=== PATIENT | male | born 1955 | race Hispanic/Latino ===

== ENCOUNTER 2017-11-19 08:14 | Outpatient (CLI) | payer BC ==
--- NOTE | 2017-11-20 10:17 | Magnetic Resonance Report ---
MR LOWER EXTREMITY JOINT LEFT WITHOUT CONTRAST HISTORY: Left knee pain. TECHNIQUE: Multisequence, multiplanar MRI without contrast. COMPARISON: None at this facility. FINDINGS: A small joint effusion is identified which extends to the suprapatellar bursa. No popliteal cyst. The body and posterior horn of the medial meniscus are slightly abnormal. The inner margin of the medial meniscus appears truncated in these areas consistent with a parrot beak tear. The lateral meniscus is normal. The ACL, PCL, MCL, LCL complex and extensor complexes are intact. No ligamentous injury is appreciated. Normal popliteus. There is a focal defect in the retropatellar cartilage consistent with a fissure. This is near the apex of the medial and lateral patellar facets. This is best demonstrated on axial proton density fat sat image 26. This appears to be near complete thickness of the cartilage but no underlying bone marrow edema or abnormal signal is identified. There is mild diffuse cartilage thinning in the medial and lateral compartments as well. The bone marrow signal is within normal limits. No evidence for fracture, bone marrow edema or bone lesion. 5 mm degenerative subchondral cyst is noted in the posterior lateral femoral condyle. IMPRESSION: There appear to be 2 parrot-beak tears in the body and posterior horn of the medial meniscus. Less likely these could represent surgical changes. Please correlate with the patient's clinical history. Retropatellar cartilage fissure. Small joint effusion.
== END 2017-11-19 08:15 | disposition home or self-care (01) ==
LOC: MRI 08:14
PROVIDERS: ATTEND Orthopaedic Surgery
DX: S83.242A Other tear of medial meniscus, current injury, left knee, initial encounter (principal); C44.300 Unspecified malignant neoplasm of skin of unspecified part of face; X58.XXXA Exposure to other specified factors, initial encounter; Y93.89 Activity, other specified; Y92.89 Other specified places as the place of occurrence of the external cause; Y99.8 Other external cause status
CPT/HCPCS: 73721

== ENCOUNTER 2017-12-04 11:28 | Outpatient (CLI) | payer BC ==
[2017-12-04 12:07] LABS: Basophils % (Auto) 0.7 % (0.0-1.8); Eosinophils # (Auto) 0.1 K/mm3 (0.0-0.4); Eosinophils % (Auto) 1.5 % (0.0-4.3); Hematocrit 42.7 % (35.5-45.6); Hemoglobin 15.1 gm/dl (11.8-15.2); Lymphocytes # (Auto) 1.8 K/mm3 (1.2-5.4); Lymphocytes % (Auto) 29.1 % (13.4-35.0); Mean Corpuscular HGB Conc 35 % (32-34); Mean Corpuscular Hemoglobin 31 pg (28-32); Mean Corpuscular Volume 88 fl (84-94); Monocytes # (Auto) 0.9 K/mm3 (0.0-0.8); Monocytes % (Auto) 14.1 % (0.0-7.3); Platelet Count 196 K/mm3 (140-440); Red Blood Count 4.87 M/mm3 (3.65-5.03); Red Cell Distribution Width 12.3 % (13.2-15.2)
[2017-12-04 12:26] LABS: BUN/Creatinine Ratio 21; Blood Urea Nitrogen 17 mg/dL (9-20)
[2017-12-04 12:27] LABS: Alanine Aminotransferase 33 units/L (7-56); Albumin 4.3 g/dL (3.9-5); Hemolysis Index 11
== END 2017-12-04 11:29 | disposition home or self-care (01) ==
LOC: CARD 11:28
PROVIDERS: ATTEND Orthopaedic Surgery
DX: E55.9 Vitamin D deficiency, unspecified (principal)
CPT/HCPCS: 36415; 80053; 82306; 85025; 93005; 93010

== ENCOUNTER 2017-12-18 08:24 | Day surgery (SDC) | payer BC ==
[2017-12-18] MEDS ORDERED: DIPRIVAN 10 MG/ML IV ONE (09:54)
[2017-12-18] MEDS ORDERED: XYLOCAINE MPF 2% ONE (09:54)
--- NOTE | 2017-12-18 10:00 | Anesthesia Consultation ---
Anesthesia Consult and Med Hx Date of service: 12/18/17 - Airway Anesthetic Teeth Evaluation: Good ROM Head & Neck: Adequate (use caution with history of neck surgery) Mental/Hyoid Distance: Adequate Mallampati Class: Class II Intubation Access Assessment: Probably Good - Pulmonary Exam CTA: Yes - Cardiac Exam Cardiac Exam: RRR - Pre-Operative Health Status ASA Pre-Surgery Classification: ASA3 Proposed Anesthetic Plan: General - Pulmonary Hx Smoking: Yes (STOPPED SNUFF 20YRS AGO) Hx Sleep Apnea: No (TL PRE SCREEN HIGH RISK) - Cardiovascular System Hx Hypertension: No - Gastrointestinal Hx Gastroesophageal Reflux Disease: No - Other Systems Hx Substance Use: No Hx Cancer: Yes (SKIN CA ON EARS REMOVED)
--- NOTE | 2017-12-18 10:12 | Anesthesia Day of Surgery ---
Anesthesia Day of Surgery - Day of Surgery Patient Examined: Yes Patient H&P Reviewed: Yes Patient is NPO: Yes
[2017-12-18] MEDS ORDERED: PERCOCET 5/325 PO PRN (10:30)
[2017-12-18] MEDS ORDERED: ZOFRAN IV PRN (10:30)
[2017-12-18] MEDS ORDERED: MORPHINE IV PRN (10:30)
[2017-12-18] MEDS ORDERED: MARCAINE-EPI 0.5%-1:200,000 INFILTRATI ONE (10:51)
[2017-12-18] MEDS ORDERED: DEPO-MEDROL ONE (10:52)
[2017-12-18] MEDS ORDERED: ANCEF/STERILE WATER 2 GM/20 ML IV NR (10:55)
[2017-12-18] MEDS ORDERED: NACL 0.9% 1000 ML 1,000 ML IV SCH (11:00)
[2017-12-18] MEDS ORDERED: PEPCID IV NR (11:00)
[2017-12-18] MEDS ORDERED: SUBLIMAZE ONE (11:48)
[2017-12-18] MEDS ORDERED: MARCAINE-EPI 0.25%-1:200,000 IJ ONE (12:08)
[2017-12-18] MEDS ORDERED: NACL 0.9% 1000 ML 1,000 ML ONE (12:27)
[2017-12-18] MEDS ORDERED: ZOFRAN ONE (12:28)
[2017-12-18] MEDS ORDERED: DECADRON ONE (12:28)
--- NOTE | 2017-12-18 14:05 | Operative Report ---
PREOPERATIVE DIAGNOSES: Left knee with degenerative joint disease, meniscal tear. POSTOPERATIVE DIAGNOSES: 1. Left knee with complex tear posterior horn body, medial meniscus. 2. Central fraying, lateral meniscus. 3. Synovitis, tricompartmental. 4. Grade 3 chondromalacia medial femoral condyle. 5. Grade 3 chondromalacia trochlear groove. 6. Grade 3 chondromalacia patella. PROCEDURE PERFORMED: 1. Left knee arthroscopy, partial medial and lateral meniscectomy. 2. Extensive synovectomy. 3. Chondroplasty, medial femoral condyle. 4. Chondroplasty, trochlear groove. 5. Chondroplasty, patella. SURGEON: Jose Luis Izaguirre MD JANITOR CARETAKER: Ander Romero CSA. ANESTHESIA: General. ESTIMATED BLOOD LOSS: Minimal. COMPLICATIONS: None. DESCRIPTION OF PROCEDURE: The patient underwent successful induction of anesthesia. The lower extremity was exsanguinated and placed in a leg darnell. Antibiotics were preadministered. Arthroscopy was carried out standard medial and lateral portals. Systematic exam was carried out and demonstrated the findings as noted. Patellofemoral compartment demonstrated chondromalacia was noted gently debrided with surface in a full radius resector with an excellent stable rim. Synovitis noted tricompartmentally which is quite extensive and appropriately debrided. Lateral compartment demonstrated well preserved articular surfaces. Central fraying of the meniscus gently debrided allowing preservation of peripheral 90% of meniscus. Otherwise, relatively well preserved joint. Notch demonstrated normal ACL and PCL. Medial compartment is primary source of pathology. It was noted to have grade 3 chondromalacia diffusely of the medial femoral condyle with general chondroplasty affected again with a Jose Luis ____ noncontact condyles were removed. The meniscus demonstrated an extensive tear complex with horizontal, vertical and radial cleavage components. To be the combination of bites full resector and a surface, next a stable rim was achieved. The horizontal cleavage did extend to the periphery, but was stable with no fish mouthing noted. This allowed preservation of the peripheral 40% of the meniscus, the peripheral 60% of the posterior aspect of the body and the majority of the anterior horn and anterior interbody. Thorough examination of the joint was carried out, both fluoroscopy and intraoperative photos were obtained for documentation. Joints were copiously irrigated and ____. Ports were closed with nylon sutures. Steri-Strips applied. He was taken to the recovery room in satisfactory condition. JOB# [id number] STEPHENP/NTS
[2017-12-18 15:29] VITALS: BP 148/83
== END 2017-12-18 14:11 | disposition home or self-care (01) ==
LOC: OR 08:24
PROVIDERS: ATTEND Orthopaedic Surgery
DX: S83.232A Complex tear of medial meniscus, current injury, left knee, initial encounter (principal); M17.12 Unilateral primary osteoarthritis, left knee; M65.9 Synovitis and tenosynovitis, unspecified; M22.42 Chondromalacia patellae, left knee; M94.262 Chondromalacia, left knee; X58.XXXA Exposure to other specified factors, initial encounter; Y93.89 Activity, other specified; Y92.89 Other specified places as the place of occurrence of the external cause; Y99.8 Other external cause status; Z85.828 Personal history of other malignant neoplasm of skin; Z87.891 Personal history of nicotine dependence; Z88.0 Allergy status to penicillin
CPT/HCPCS: 29876; 29881; J0690; J1100; J2405; J2704; J3010; J7030; J1030

== ENCOUNTER 2017-12-20 17:17 | Emergency (ER) | payer BC | END 2017-12-20 18:17 | LOC: ED 17:17 | DX: M25.562 Pain in left knee (principal); Z53.21 Procedure and treatment not carried out due to patient leaving prior to being seen by health care provider ==

== ENCOUNTER 2018-02-28 12:03 | Emergency (ER) | payer BC ==
[2018-02-28 12:08] VITALS: BP 160/82
--- NOTE | 2018-02-28 12:37 | Emergency Department Report ---
ED Rash HPI - HPI Chief Complaint: Skin Rash Stated Complaint: RASH Time Seen by Provider: 02/28/18 12:30 Duration: 3 Days Location: Other (patient has a vesicular erythematous rash at the left T10 distribution) Rash Symptoms: Yes Itching Severity: mild ED Review of Systems ROS: Stated complaint: RASH Other details as noted in HPI Comment: All other systems reviewed and negative ED Past Medical Hx - Past Medical History Hx Hypertension: No Hx HIV: No - Social History Smoking Status: Never Smoker Substance Use Type: None - Medications Home Medications: Home Medications Medication Instructions Recorded Confirmed Last Taken Type Acyclovir [Zovirax Cap] 200 mg PO 5XD 7 Days cap 02/28/18 Unknown Rx HYDROcodone/APAP 5-325 [[place] 1 each PO Q6HR PRN #12 tablet 02/28/18 Unknown Rx 5/325] Rash Exam - Exam General: Vital signs noted. No distress. Alert and acting appropriately. HEENT: No Periorbital Edema, No Conjuctival Injection, No Chemosis, No Perioral Edema, No Tongue Edema, No Uvular Edema, No Compromised Airway, No Drooling Lungs: Yes Good Air Exchange (Normal Breath Sounds), No Wheezes, No Ronchi, No Stridor, No Cough, No Labored Respirations, No Retractions, No Use of Accessory Muscles, No Other Abnormal Lung Sounds Heart: Yes Regular, No Murmur Skin: Yes Erythema (patient has an erythematous vesicular rash at the left T10 dermatome) Other: Positive: Abdomen Normal, Neurologic Normal, Musculoskeletal Normal ED Course Vital Signs 02/28/18 12:06 Temperature 98.3 F Pulse Rate 74 Respiratory 16 Rate Blood Pressure 160/82 O2 Sat by Pulse 95 Oximetry Critical care attestation.: If time is entered above; I have spent that time in minutes in the direct care of this critically ill patient, excluding procedure time. ED Disposition Clinical Impression: Shingles Disposition: DC-01 TO HOME OR SELFCARE Is pt being admited?: No Does the pt Need Aspirin: No Condition: Stable Instructions: Herpes Zoster (ED) Prescriptions: Acyclovir [Zovirax Cap] 200 mg PO 5XD 7 Days cap HYDROcodone/APAP 5-325 [[place] 5/325] 1 each PO Q6HR PRN #12 tablet PRN Reason: Pain Referrals: PRIMARY CARE, [Primary Care Provider] - 3-5 Days
== END 2018-02-28 14:06 | disposition home or self-care (01) ==
LOC: ED 12:03
DX: B02.9 Zoster without complications (principal)
CPT/HCPCS: 99282